=== PATIENT | female | born 1970 | race Two or more races ===

== ENCOUNTER → 2025-04-10 | Outpatient (CLI) | payer BC, MEDICAID, SELFPAY ==
[2025-04-10 17:42] LABS: D-Dimer < 250 ng/mL (<600)
== END | disposition home or self-care (01) ==
LOC: COPL 16:43
PROVIDERS: PCP Internal Medicine; Referring Provider Internal Medicine; Visit Provider Internal Medicine
DX: M79.89 Other specified soft tissue disorders (principal); R21 Rash and other nonspecific skin eruption
CPT/HCPCS: 36415; 85379